=== PATIENT | female | born 1970 | race Caucasian/White ===

== ENCOUNTER 2019-05-16 20:36 | Emergency (ER) | payer BC ==
[2019-05-16] MEDS ORDERED: Sodium Chloride 0.9% 10 ML Syringe FLUSH PRN (20:47)
[2019-05-16] MEDS ORDERED: Aspirin 81 MG Tab.Chew PO ONE (20:50)
[2019-05-16] MEDS ORDERED: Amiodarone 150 MG/3 ML SDV IVPUSH ONE (20:56)
--- NOTE | 2019-05-16 21:05 | EDM.PDOC ---
ED HPI GENERAL MEDICAL PROBLEM - General Chief Complaint: Cardiovascular Problem Stated Complaint: BACK PAIN Time Seen by Provider: 05/16/19 20:45 Source of Information: Reports: Patient, Family, Old Records History Limitations: Reports: No Limitations - History of Present Illness INITIAL COMMENTS - FREE TEXT/NARRATIVE: 48 yo female who only takes an estrogen medication and who has been relatively healthy presents with about a 9 day hx of intermittent dizziness. Over the past day she has pain between her shoulder blades. Is unaware of any heart palpitations. Denies SOB. Walked about 2 miles today at work, had to walk a little slower than usual. No nausea. No hx of CAD. Is here with her . Onset: Gradual Onset Date: 05/07/19 Duration: Day(s):, Waxing/Waning Location: Reports: Head (light-headedness), Back (pain) Quality: Reports: Pressure (back) Severity: Mild Improves with: Reports: None Worsens with: Reports: None Context: Reports: Other (see HPI) Associated Symptoms: Reports: No Other Symptoms Treatments ADMIN DIR: Reports: Other (see below) (none) - Related Data Allergies Allergy/AdvReac Type Severity Reaction Status Date / Time penicillin Allergy Rash Verified 05/16/19 20:48 Sulfa (Sulfonamide Allergy Rash Verified 05/16/19 20:48 Antibiotics) Home Meds: Home Meds NK [No Known Home Meds] 06/02/15 [History] ED ROS GENERAL - Review of Systems Review Of Systems: See Below Constitutional: Reports: No Symptoms HEENT: Reports: No Symptoms, Vertigo Cardiovascular: Reports: Lightheadedness (intermittent) Endocrine: Reports: No Symptoms GI/Abdominal: Reports: No Symptoms : Reports: No Symptoms Musculoskeletal: Reports: No Symptoms Skin: Reports: No Symptoms Neurological: Reports: No Symptoms Psychiatric: Reports: No Symptoms ED EXAM, GENERAL - Physical Exam Exam: See Below Exam Limited By: No Limitations General Appearance: Alert, WD/WN, No Apparent Distress Eye Exam: Bilateral Eye: Normal Inspection Ears: Normal External Exam, Normal Canal, Hearing Grossly Normal, Normal TMs Ear Exam: Bilateral Ear: Auricle Normal, Canal Normal, TM normal Nose: Normal Inspection, No Blood Throat/Mouth: Normal Inspection, Normal Lips, Normal Oropharynx, Normal Voice, No Airway Compromise Head: Atraumatic, Normocephalic Neck: Normal Inspection Respiratory/Chest: No Respiratory Distress, Lungs Clear, Normal Breath Sounds, No Accessory Muscle Use Cardiovascular: Tachycardia (at times), Irregularly Irregular GI/Abdominal: Normal Bowel Sounds, Soft, Non-Tender, No Distention Back Exam: Normal Inspection. No: CVA Tenderness (R), CVA Tenderness (L) Extremities: Normal Inspection, Normal Range of Motion, Non-Tender, No Pedal Edema Neurological: Alert, Oriented, CN II-XII Intact, Normal Cognition, No Motor/ Sensory Deficits Psychiatric: Normal Affect, Normal Mood Skin Exam: Warm, Dry, Intact, Normal Color, No Rash EKG INTERPRETATION EKG Date: 05/16/19 Time: 20:45 Rhythm: Other (non-sustained V-tach) Rate (Beats/Min): 132 [place]: Normal P-Wave: Absent QRS: Wide ST-T: Depressed QT: Normal Comparison: NA - No Prior EKG Course - Vital Signs Text/Narrative:: [facility] Cardiology consult requested by phone @ 4017h. Rate slowed with amiodarone, drip initiated. Last Recorded V/S: Last Vital Signs Temp 36.3 C 05/16/19 21:01 Pulse 93 05/16/19 21:24 Resp 15 05/16/19 21:24 BP 150/120 H 05/16/19 21:24 Pulse Ox 100 05/16/19 21:24 - Orders/Labs/Meds Orders: Active Orders 24 hr Category Date Time Status Cardiac Monitoring [RC] .As Directed Care 05/16/19 20:47 Active EKG Documentation Completion [RC] ASDIRECTED Care 05/16/19 20:47 Active Oxygen Therapy Adult [Oxygen Therapy, ED] [RC] Care 05/16/19 20:51 Active ASDIRECTED TSH ULTRASENSITIVE [CHEM] Stat Lab 05/16/19 21:45 Ordered Amiodarone [Cordarone] 450 mg Med 05/16/19 21:45 Active Dextrose 5% in Water 241 ml IV ASDIRECTED Sodium Chloride 0.9% [Saline Flush] Med 05/16/19 20:47 Active 10 ml FLUSH ASDIRECTED PRN Saline Lock Insert [OM.PC] Routine Oth 05/16/19 20:47 Ordered EKG 12 Lead [EK] Routine Ther 05/16/19 20:47 Ordered Medication Orders Amiodarone HCl 450 mg/ (Dextrose/Water) 250 mls @ 33.33 mls/hr IV ASDIRECTED MATILDE; Protocol Sodium Chloride (Saline Flush) 10 ml FLUSH ASDIRECTED PRN PRN Reason: Keep Vein Open Last Admin: 05/16/19 21:11 Dose: 10 ml Labs: Laboratory Tests 05/16/19 05/16/19 05/16/19 Range/Units 20:53 20:53 20:58 WBC 9.1 (4.5-11.0) K/uL RBC 4.92 (3.30-5.50) M/uL Hgb 14.4 (12.0-15.0) g/dL Hct 43.3 (36.0-48.0) % MCV 88 (80-98) fL MCH 29 (27-31) pg MCHC 33 (32-36) % Plt Count 249 (150-400) K/uL Sodium 141 (140-148) mmol/L Potassium 4.2 (3.6-5.2) mmol/L Chloride 103 (100-108) mmol/L Carbon Dioxide 30 (21-32) mmol/L Anion Gap 8.4 (5.0-14.0) mmol/L BUN 17 (7-18) mg/dL Creatinine 1.0 (0.6-1.0) mg/dL Est Cr Clr Drug Dosing 60.56 mL/min Estimated GFR (MDRD) 59 L (>60) Glucose 114 H (74-106) mg/dL Calcium 10.4 H (8.5-10.1) mg/dL Magnesium 2.0 (1.8-2.4) mg/dL Troponin I < 0.017 (0.000-0.056) ng/mL Meds: Medications Generic Name Dose Route Start Last Admin Trade Name Freq PRN Reason Stop Dose Admin Amiodarone HCl 450 mg/ 250 mls @ 33.33 mls/hr 05/16/19 21:45 Dextrose/Water IV ASDIRECTED MATILDE Protocol 1 MG/MIN Sodium Chloride 10 ml 05/16/19 20:47 05/16/19 21:11 Saline Flush FLUSH 10 ml ASDIRECTED PRN Administration Keep Vein Open Discontinued Medications Generic Name Dose Route Start Last Admin Trade Name Freq PRN Reason Stop Dose Admin Amiodarone HCl 150 mg 05/16/19 20:56 05/16/19 21:49 Cordarone IVPUSH 05/16/19 20:57 150 mg ONETIME ONE Administration Aspirin 324 mg 05/16/19 20:50 05/16/19 20:53 Aspirin PO 05/16/19 20:51 324 mg ONETIME ONE Administration Dextrose/Water Confirm 05/16/19 21:09 05/16/19 21:50 Dextrose 5% In Water Administered 05/16/19 21:10 100 mls/hr Dose Administration 100 mls @ as directed .ROUTE .STK-MED ONE Departure - Departure Time of Disposition: 22:10 Disposition: DC/Tfer to Acute Hospital 02 Reason for Transfer *Q: Other Condition: Fair Clinical Impression: Atrial fibrillation with RVR Referrals: PCP,None [Primary Care Provider] - Forms: ED Department Discharge - My Orders Last 24 Hours: My Active Orders 05/16/19 20:47 Cardiac Monitoring [RC] .As Directed EKG Documentation Completion [RC] ASDIRECTED Sodium Chloride 0.9% [Saline Flush] 10 ml FLUSH ASDIRECTED PRN Saline Lock Insert [OM.PC] Routine EKG 12 Lead [EK] Routine 05/16/19 20:51 Oxygen Therapy Adult [Oxygen Therapy, ED] [RC] ASDIRECTED 05/16/19 21:45 TSH ULTRASENSITIVE [CHEM] Stat Amiodarone [Cordarone] 450 mg Dextrose 5% in Water 241 ml IV ASDIRECTED - Assessment/Plan Last 24 Hours: My Active Orders 05/16/19 20:47 Cardiac Monitoring [RC] .As Directed EKG Documentation Completion [RC] ASDIRECTED Sodium Chloride 0.9% [Saline Flush] 10 ml FLUSH ASDIRECTED PRN Saline Lock Insert [OM.PC] Routine EKG 12 Lead [EK] Routine 05/16/19 20:51 Oxygen Therapy Adult [Oxygen Therapy, ED] [RC] ASDIRECTED 05/16/19 21:45 TSH ULTRASENSITIVE [CHEM] Stat Amiodarone [Cordarone] 450 mg Dextrose 5% in Water 241 ml IV ASDIRECTED
[2019-05-16] MEDS ORDERED: Dextrose 5% in Water 100 ML ONE (21:09)
[2019-05-16 22:45] VITALS: BP 144/98; PULSE 112
== END 2019-05-16 23:00 ==
LOC: JP.ED 20:36
DX: I48.2 Chronic atrial fibrillation (principal); Z88.0 Allergy status to penicillin; Z88.2 Allergy status to sulfonamides
CPT/HCPCS: 36415; 80048; 83735; 84443; 84484; 85027; 93005; 96365; 96376; 99284; A9270; J0282; J7060

== ENCOUNTER 2019-05-20 10:07 | Emergency (ER) | payer BC ==
[2019-05-20 10:28] VITALS: BP 139/82; PULSE 52
--- NOTE | 2019-05-20 11:16 | EDM.PDOC ---
ED HPI GENERAL MEDICAL PROBLEM - General Chief Complaint: Cardiovascular Problem Stated Complaint: HEART ISSUES Time Seen by Provider: 05/20/19 10:40 Source of Information: Reports: Patient History Limitations: Reports: No Limitations - History of Present Illness INITIAL COMMENTS - FREE TEXT/NARRATIVE: 48-year-old female presents with left upper shoulder discomfort and nausea, she was worked up and sent to [place] for cardiology evaluation this week after coming into the emergency room 5 days ago with back and chest discomfort. An angiogram, echocardiogram, transesophageal echo were all performed in [place] and she was found to have mitral valve prolapse causing frequent ectopic beats. She does have a [facility] consultation coming up to consider surgery. She also has a follow-up appointment with her primary provider next Thursday, and a cardiology follow-up on Thursday. She came in today because she is having some persistent nausea and the back discomfort is also present. When she arrived to the emergency room she started feeling better. There appears to be some anxiety about her symptoms and upcoming evaluation and possible surgery. She denies shortness of breath. Onset: Unknown/Unsure Associated Symptoms: Reports: Malaise, Nausea/Vomiting. Denies: Confusion, Chest Pain, Cough, Diaphoresis - Related Data Allergies Allergy/AdvReac Type Severity Reaction Status Date / Time penicillin Allergy Rash Verified 05/20/19 10:24 Sulfa (Sulfonamide Allergy Rash Verified 05/20/19 10:24 Antibiotics) Home Meds: Home Meds Aspirin 1 tab PO DAILY 05/20/19 [History] Magnesium Chloride [Mag-64] 1 tab PO DAILY 05/20/19 [History] Metoprolol Tartrate 1 tab PO DAILY 05/20/19 [History] Past Medical History HEENT History: Reports: Impaired Vision Cardiovascular History: Reports: Heart Murmur, Other (See Below) Other Cardiovascular History: mitral valve prolaps dx on thursday 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 Denies: Fever, Chills HEENT: Reports: No Symptoms Respiratory: Denies: Shortness of Breath Cardiovascular: Denies: Palpitations GI/Abdominal: Reports: Nausea Musculoskeletal: Reports: Back Pain (Posterior upper left shoulder) Psychiatric: Reports: Anxiety ED EXAM, GENERAL - Physical Exam Exam: See Below Exam Limited By: No Limitations General Appearance: Alert, Anxious Eye Exam: Bilateral Eye: Normal Inspection Head: Atraumatic Neck: Normal Inspection Respiratory/Chest: No Respiratory Distress, Lungs Clear Cardiovascular: Regular Rate, Rhythm, Extra Beats (Frequent ectopic beats) GI/Abdominal: Non-Tender Back Exam: Other (She does have some reproducible tenderness to palpation over the left rhomboid area) EKG INTERPRETATION EKG Date: 05/20/19 Time: 10:35 Rhythm: NSR ST-T: Normal EKG Interpretation Comments: Normal sinus rhythm with frequent PACs Course - Vital Signs Last Recorded V/S: Last Vital Signs Temp 97.5 F 05/20/19 10:33 Pulse 52 L 05/20/19 10:33 Resp 15 05/20/19 10:33 BP 139/82 05/20/19 10:33 Pulse Ox 98 05/20/19 10:33 - Orders/Labs/Meds Orders: Active Orders 24 hr Category Date Time Status EKG Documentation Completion [RC] ASDIRECTED Care 05/20/19 11:03 Active EKG 12 Lead [EK] Routine Ther 05/20/19 11:03 Ordered - Re-Assessments/Exams Free Text/Narrative Re-Assessment/Exam: 05/20/19 11:15 Workup is not necessary with this patien she has had a workup earlier this week and has follow-up set up. She was given 5 doses of sublingual Zofran to use as needed for persistent nausea. She is to continue her metoprolol. She can return anytime if she feels she is worsening or needs further evaluation prior to her appointment next week. Departure - Departure Time of Disposition: 11:17 Disposition: Home, Self-Care 01 Condition: Good Clinical Impression: Nausea, Mitral valve prolapse Instructions: Mitral Valve Prolapse Referrals: PCP,None [Primary Care Provider] - Forms: ED Department Discharge Care Plan Goals: Continue your metoprolol, increase activity as tolerated and use sublingual Zofran as directed for persistent nausea. Recheck next week as scheduled or return sooner if you develop concerns. - My Orders Last 24 Hours: My Active Orders 05/20/19 11:03 EKG Documentation Completion [RC] ASDIRECTED EKG 12 Lead [EK] Routine - Assessment/Plan Last 24 Hours: My Active Orders 05/20/19 11:03 EKG Documentation Completion [RC] ASDIRECTED EKG 12 Lead [EK] Routine
== END 2019-05-20 11:18 | disposition home or self-care (01) ==
LOC: JP.ED 10:07
DX: I34.1 Nonrheumatic mitral (valve) prolapse (principal); R11.2 Nausea with vomiting, unspecified; Z88.0 Allergy status to penicillin; Z88.2 Allergy status to sulfonamides; Z79.82 Long term (current) use of aspirin; Z79.899 Other long term (current) drug therapy
CPT/HCPCS: 93005; 99283-25

== ENCOUNTER 2019-05-29 13:19 | Emergency (ER) | payer BC ==
--- NOTE | 2019-05-29 13:39 | EDM.PDOC ---
ED HPI GENERAL MEDICAL PROBLEM - General Chief Complaint: Cardiovascular Problem Stated Complaint: WEAK, LIGHT HEAD Time Seen by Provider: 05/29/19 13:25 Source of Information: Reports: Patient History Limitations: Reports: No Limitations - History of Present Illness INITIAL COMMENTS - FREE TEXT/NARRATIVE: Bee is a 48 year old female, presents to the ED today with c/o generalized fatigue, lightheadedness and feeling tired. Patient was seen here at the end of April and diagnosed with atrial fibrillation RVR since that time she has been on metoprolol to control her rate. She initially was on 25 mg BID, however, heart rate was too low so she was switched to 12.5 mg BID for the last few days. Patient is not feeling much improvement. She denies any current chest pain but does have chest pain intermittently. Patient denies any sob, fever/chills. Patient is supposed to be going to [place] to be evaluated by their cardiac care team with Dr. Bentley for leaky mitral valve. 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 ED EXAM, GENERAL - Physical Exam Exam: See Below Exam Limited By: No Limitations General Appearance: Alert, WD/WN, No Apparent Distress, Other (Alert but appears tired) Eye Exam: Bilateral Eye: EOMI Ears: Normal External Exam Head: Atraumatic Neck: Normal Inspection, Supple, Non-Tender Respiratory/Chest: No Respiratory Distress, Lungs Clear, Normal Breath Sounds Cardiovascular: Normal Peripheral Pulses, No Edema, Bradycardia. No: Extra Beats Extremities: Normal Inspection Neurological: Alert, Oriented, CN II-XII Intact Psychiatric: Other (flat affect) Skin Exam: Warm, Dry, Intact Lymphatic: No Adenopathy EKG INTERPRETATION EKG Date: 05/29/19 Time: 13:22 Rhythm: Other (sinus bradycardia) Rate (Beats/Min): 50 [place]: Normal P-Wave: Present QRS: Normal ST-T: Normal QT: Normal Course - Vital Signs Last Recorded V/S: Last Vital Signs Temp 36.1 C 05/29/19 13:38 Pulse 54 L 05/29/19 14:55 Resp 16 05/29/19 14:55 BP 143/84 H 05/29/19 14:55 Pulse Ox 99 05/29/19 13:38 Bee is a 48 year old female, recently diagnosed with atrial fibrillation with RVR, now on Metoprolol, presents to the ED with feeling generally tired/ fatigued. Patient is hemodynamically stable and afebrile here. She is bradycardic with no ectopy or acute ischemia on EKG. Blood work obtained including Troponin, CBC, BMP, TSH and magnesium, all unremarkable. I discussed patient with Dr. Valles, cardiology from [place], recommend to stop the Metoprolol for now. If she returns into an atrial fibrillation rhythm going forward will need a CCB instead. Patient updated on plan of care and is agreeable. Reasons to return discussed, patient and agreeable and patient discharged in stable condition. - Orders/Labs/Meds Orders: Active Orders 24 hr Category Date Time Status EKG Documentation Completion [RC] ASDIRECTED Care 05/29/19 13:24 Active EKG 12 Lead [EK] Stat Ther 05/29/19 13:23 Ordered Labs: Laboratory Tests 05/29/19 05/29/19 Range/Units 13:50 13:50 WBC 6.6 (4.5-11.0) K/uL RBC 4.62 (3.30-5.50) M/uL Hgb 13.4 (12.0-15.0) g/dL Hct 40.8 (36.0-48.0) % MCV 88 (80-98) fL MCH 29 (27-31) pg MCHC 33 (32-36) % Plt Count 275 (150-400) K/uL Neut % (Auto) 57 (36-66) % Lymph % (Auto) 30 (24-44) % [place] % (Auto) 7 H (2-6) % Eos % (Auto) 6 H (2-4) % Baso % (Auto) 0 (0-1) % Sodium 140 (140-148) mmol/L Potassium 4.5 (3.6-5.2) mmol/L Chloride 104 (100-108) mmol/L Carbon Dioxide 28 (21-32) mmol/L Anion Gap 8.2 (5.0-14.0) mmol/L BUN 27 H D (7-18) mg/dL Creatinine 1.0 (0.6-1.0) mg/dL Est Cr Clr Drug Dosing 60.56 mL/min Estimated GFR (MDRD) 59 L (>60) Glucose 87 (74-106) mg/dL Calcium 9.9 (8.5-10.1) mg/dL Magnesium 1.8 (1.8-2.4) mg/dL Troponin I < 0.017 (0.000-0.056) ng/mL TSH, Ultra Sensitive 2.603 (0.358-3.740) uIU/mL Departure - Departure Time of Disposition: 15:30 Disposition: Home, Self-Care 01 Condition: Fair Clinical Impression: Bradycardia, Generalized weakness Fatigue Qualifiers: Fatigue type: other Qualified Code(s): R53.83 - Other fatigue Instructions: Fatigue, Bradycardia, Adult Referrals: PCP,None [Primary Care Provider] - Forms: ED Department Discharge Additional Instructions: Stop the Metoprolol Continue with baby aspirin daily Stay well hydrated. Return with any worsening symptoms or new symptoms. Good luck with everything, I hope this is all resolved for you shortly. If you do end up in atrial fibrillation again, you will need a calcium channel zee instead. - My Orders Last 24 Hours: My Active Orders 05/29/19 13:23 EKG 12 Lead [EK] Stat 05/29/19 13:24 EKG Documentation Completion [RC] ASDIRECTED - Assessment/Plan Last 24 Hours: My Active Orders 05/29/19 13:23 EKG 12 Lead [EK] Stat 05/29/19 13:24 EKG Documentation Completion [RC] ASDIRECTED
[2019-05-29 14:56] VITALS: BP 143/84; PULSE 54
== END 2019-05-29 15:35 | disposition home or self-care (01) ==
LOC: JP.ED 13:19
DX: R00.1 Bradycardia, unspecified (principal); R53.1 Weakness; R53.83 Other fatigue; Z98.890 Other specified postprocedural states; Z79.82 Long term (current) use of aspirin; Z88.0 Allergy status to penicillin; Z88.2 Allergy status to sulfonamides
CPT/HCPCS: 36415; 80048; 83735; 84443; 84484; 85025; 93005; 99283-25

== ENCOUNTER 2019-06-13 00:10 | Emergency (ER) | payer BC ==
--- NOTE | 2019-06-13 01:16 | EDM.PDOC ---
ED HPI GENERAL MEDICAL PROBLEM - General Chief Complaint: Cardiovascular Problem Stated Complaint: HEART PROBLEMS Time Seen by Provider: 06/13/19 00:50 Source of Information: Reports: Patient, Old Records, RN History Limitations: Reports: No Limitations - History of Present Illness INITIAL COMMENTS - FREE TEXT/NARRATIVE: 48 yo female was seen here a couple weeks ago for a wide complex tachycardia and was referred to [facility] where they dx afib with aberrancy. She is wearing a heart monitor and got a call from the monitoring company telling her to come to the ER [facility] after a short run of tachycardia was noted. Patient is here at their recommendation, but is now feeling fine. She is on metoprolol succinate 25 mg bid currently for rate control and ASA as she is low risk for stroke. She was also found to have valvular dz in [facility] and she is waiting a few more weeks to be seen at [place] for valve repair. She is getting tired of waiting and would like an appt at [facility] with a Dr. Carty who does the procedure she needs. Onset: Sudden Onset Date: 06/12/19 Duration: Other (seconds) Location: Reports: Chest Quality: Reports: Other (no pain) Severity: Moderate Improves with: Reports: Other (resolved on its own) Worsens with: Reports: Other (unknown) Context: Reports: Other (see HPI) Associated Symptoms: Reports: Other (Has some fatigue since this process began a few weeks ago. 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 (see below) (none) - Related Data Allergies Allergy/AdvReac Type Severity Reaction Status Date / Time penicillin Allergy Rash Verified 05/29/19 13:30 Sulfa (Sulfonamide Allergy Rash Verified 05/29/19 13:30 Antibiotics) Home Meds: Home Meds Aspirin 1 tab PO DAILY 05/20/19 [History] Ondansetron [Ondansetron ODT] 1 tab PO TID PRN 05/29/19 [History] Metoprolol Succinate 25 mg PO DAILY 06/13/19 [History] Past Medical History HEENT History: Reports: Impaired Vision Cardiovascular History: Reports: Afib, Arrhythmia, Heart Murmur, Other (See Below) Other Cardiovascular History: mitral valve prolaps dx on thursday. 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: - Past Surgical History HEENT Surgical History: Reports: LASIK, Oral Surgery Female Surgical History: Reports: Other (See Below) Other Female Surgeries/Procedures: fibroids removed from uterus Musculoskeletal Surgical History: Reports: Other (See Below) Other Musculoskeletal Surgeries/Procedures:: bunionectomy Social & Family History - Family History Family Medical History: Noncontributory - Tobacco Use Smoking Status *Q: Never Smoker - Caffeine Use Caffeine Use: Reports: None - Recreational Drug Use Recreational Drug Use: No ED ROS GENERAL - Review of Systems Review Of Systems: See Below Constitutional: Reports: Fatigue HEENT: Reports: No Symptoms Respiratory: Reports: No Symptoms Cardiovascular: Reports: Palpitations (intermittently) GI/Abdominal: Reports: No Symptoms : Reports: No Symptoms Skin: Reports: No Symptoms Neurological: Reports: No Symptoms ED EXAM, GENERAL - Physical Exam Exam: See Below Exam Limited By: No Limitations General Appearance: Alert, WD/WN, No Apparent Distress Eye Exam: Bilateral Eye: Normal Inspection Ears: Hearing Grossly Normal Ear Exam: Right Ear: Erythema Nose: Normal Inspection, No Blood Throat/Mouth: Normal Inspection, Normal Lips, Normal Voice, No Airway Compromise Head: Atraumatic, Normocephalic Neck: Normal Inspection Respiratory/Chest: No Respiratory Distress, Lungs Clear, Normal Breath Sounds, No Accessory Muscle Use Cardiovascular: No Edema, Irregularly Irregular Extremities: Normal Inspection Neurological: Alert, Oriented, CN II-XII Intact, Normal Cognition, No Motor/ Sensory Deficits Psychiatric: Normal Affect, Normal Mood Skin Exam: Warm, Dry, Intact, Normal Color, No Rash Course - Orders/Labs/Meds Orders: Active Orders 24 hr Category Date Time Status Cardiac Monitoring [RC] .As Directed Care 06/13/19 00:47 Active Departure - Departure Time of Disposition: 01:18 Disposition: Home, Self-Care 01 Condition: Fair Clinical Impression: Atrial fibrillation with RVR Instructions: Atrial Fibrillation, [id number] Referrals: Laurel Ham MD [Primary Care Provider] - Additional Instructions: Hopefully someone from [facility] will contact you later today with an appt for [facility], Dr. Carty. Return as needed. Continue your current meds. - My Orders Last 24 Hours: My Active Orders 06/13/19 00:47 Cardiac Monitoring [RC] .As Directed - Assessment/Plan Last 24 Hours: My Active Orders 06/13/19 00:47 Cardiac Monitoring [RC] .As Directed
[2019-06-13 01:52] VITALS: BP 109/76
== END 2019-06-13 01:27 | disposition home or self-care (01) ==
LOC: JP.ED 00:10
DX: I48.91 Unspecified atrial fibrillation (principal); Z88.0 Allergy status to penicillin; Z88.2 Allergy status to sulfonamides; Z79.82 Long term (current) use of aspirin; Z79.899 Other long term (current) drug therapy
CPT/HCPCS: 99283-25

== ENCOUNTER 2019-06-13 22:24 | Emergency (ER) | payer BC ==
[2019-06-13] MEDS ORDERED: Magnesium Sulfate (4.06 MEQ/ML) 1 GM/2 ML SDV IV ONE (23:09)
--- NOTE | 2019-06-13 23:18 | EDM.PDOC ---
ED HPI GENERAL MEDICAL PROBLEM - General Chief Complaint: Cardiovascular Problem Stated Complaint: MEDICAL Time Seen by Provider: 06/13/19 23:12 Source of Information: Reports: Patient History Limitations: Reports: No Limitations - History of Present Illness INITIAL COMMENTS - FREE TEXT/NARRATIVE: pt arrived with a history of a run of vtach per the loop recorder. [facility] advised the pt to come to the er. She has been in the Er 3 times this week. Each time she has been found to be in fib-flutter. She has not had chest pain. She has a known history of mitral valve prolapse. She is not on coumadin or other thinners. Onset: Today Duration: Hour(s): Location: Reports: Chest Associated Symptoms: Reports: No Other Symptoms, Other (pt has had some discomfort between her shoulder blades. ) denies pain Pain Score (Numeric/FACES): 0 - Related Data Allergies Allergy/AdvReac Type Severity Reaction Status Date / Time penicillin Allergy Rash Verified 06/13/19 22:32 Sulfa (Sulfonamide Allergy Rash Verified 06/13/19 22:32 Antibiotics) Home Meds: Home Meds Aspirin 325 mg PO DAILY 05/20/19 [History] Ondansetron [Ondansetron ODT] 1 tab PO TID PRN 05/29/19 [History] Metoprolol Succinate 25 mg PO BID 06/13/19 [History] Past Medical History HEENT History: Reports: Impaired Vision Cardiovascular History: Reports: Afib, Arrhythmia, Heart Murmur, Other (See Below) Other Cardiovascular History: mitral valve prolaps dx on thursday. atrial flutter. 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 [employer] History: Reports: - Past Surgical History HEENT Surgical History: Reports: LASIK, Oral Surgery Female Surgical History: Reports: Other (See Below) Other Female Surgeries/Procedures: fibroids removed from uterus Musculoskeletal Surgical History: Reports: Other (See Below) Other Musculoskeletal Surgeries/Procedures:: bunionectomy Social & Family History - Family History Family Medical History: Noncontributory - Tobacco Use Smoking Status *Q: Never Smoker - Caffeine Use Caffeine Use: Reports: None - Recreational Drug Use Recreational Drug Use: No ED ROS GENERAL - Review of Systems Review Of Systems: See Below Constitutional: Reports: Other (pt has had multiple episodes of dizziness and she is wondering if she is having episodes of vtach. ) HEENT: Reports: No Symptoms Respiratory: Reports: No Symptoms Cardiovascular: Reports: Lightheadedness, Palpitations, Other (pt was told that she was in VTach. ) Endocrine: Reports: No Symptoms GI/Abdominal: Reports: No Symptoms : Reports: No Symptoms Musculoskeletal: Reports: No Symptoms Skin: Reports: No Symptoms Neurological: Reports: Dizziness Psychiatric: Reports: Anxiety ED EXAM, GENERAL - Physical Exam Exam: See Below Free Text/Narrative:: pt arrived with a history of a run of V tach which showed up on the loop recorder. Exam Limited By: No Limitations General Appearance: Alert, Anxious, Mild Distress Ears: Normal TMs Nose: Normal Inspection Throat/Mouth: Normal Inspection Head: Atraumatic Neck: Normal Inspection Respiratory/Chest: No Respiratory Distress Cardiovascular: Irregularly Irregular, Other (pt is in a fib flutter rhythm and is not on blood thinners. ) GI/Abdominal: Soft, Non-Tender (Female) Exam: Deferred Rectal (Female) Exam: Deferred Back Exam: Normal Inspection Extremities: Normal Inspection Neurological: Alert, Oriented, Normal Cognition Psychiatric: Anxious Course - Vital Signs Last Recorded V/S: Last Vital Signs Temp 36.9 C 06/13/19 22:34 Pulse 91 06/13/19 22:34 Resp 21 H 06/13/19 22:34 BP 113/79 06/13/19 23:45 Pulse Ox 99 06/13/19 22:34 - Orders/Labs/Meds Labs: Laboratory Tests 06/13/19 06/13/19 06/13/19 Range/Units 22:42 22:42 22:42 WBC 9.1 (4.5-11.0) K/uL RBC 4.52 (3.30-5.50) M/uL Hgb 13.2 (12.0-15.0) g/dL Hct 40.0 (36.0-48.0) % MCV 89 (80-98) fL MCH 29 (27-31) pg MCHC 33 (32-36) % Plt Count 253 (150-400) K/uL Neut % (Auto) 54 (36-66) % Lymph % (Auto) 30 (24-44) % [place] % (Auto) 10 H (2-6) % Eos % (Auto) 6 H (2-4) % Baso % (Auto) 0 (0-1) % Sodium 139 L (140-148) mmol/L Potassium 3.9 (3.6-5.2) mmol/L Chloride 104 (100-108) mmol/L Carbon Dioxide 28 (21-32) mmol/L Anion Gap 10.9 (5.0-14.0) mmol/L BUN 29 H (7-18) mg/dL Creatinine 1.1 H (0.6-1.0) mg/dL Est Cr Clr Drug Dosing 55.06 mL/min Estimated GFR (MDRD) 53 L (>60) Glucose 104 (74-106) mg/dL Calcium 9.5 (8.5-10.1) mg/dL Magnesium 1.7 L (1.8-2.4) mg/dL Total Bilirubin 0.2 (0.2-1.0) mg/dL AST 17 (15-37) U/L ALT 29 (12-78) U/L Alkaline Phosphatase 59 (46-116) U/L Troponin I (0.000-0.056) ng/mL Total Protein 6.6 (6.4-8.2) g/dL Albumin 3.7 (3.4-5.0) g/dL Globulin 2.9 (2.3-3.5) g/dL Albumin/Globulin Ratio 1.3 (1.2-2.2) 06/13/19 Range/Units 23:15 WBC (4.5-11.0) K/uL RBC (3.30-5.50) M/uL Hgb (12.0-15.0) g/dL Hct (36.0-48.0) % MCV (80-98) fL MCH (27-31) pg MCHC (32-36) % Plt Count (150-400) K/uL Neut % (Auto) (36-66) % Lymph % (Auto) (24-44) % [place] % (Auto) (2-6) % Eos % (Auto) (2-4) % Baso % (Auto) (0-1) % Sodium (140-148) mmol/L Potassium (3.6-5.2) mmol/L Chloride (100-108) mmol/L Carbon Dioxide (21-32) mmol/L Anion Gap (5.0-14.0) mmol/L BUN (7-18) mg/dL Creatinine (0.6-1.0) mg/dL Est Cr Clr Drug Dosing mL/min Estimated GFR (MDRD) (>60) Glucose (74-106) mg/dL Calcium (8.5-10.1) mg/dL Magnesium (1.8-2.4) mg/dL Total Bilirubin (0.2-1.0) mg/dL AST (15-37) U/L ALT (12-78) U/L Alkaline Phosphatase (46-116) U/L Troponin I < 0.017 (0.000-0.056) ng/mL Total Protein (6.4-8.2) g/dL Albumin (3.4-5.0) g/dL Globulin (2.3-3.5) g/dL Albumin/Globulin Ratio (1.2-2.2) Meds: Medications Discontinued Medications Generic Name Dose Route Start Last Admin Trade Name Freq PRN Reason Stop Dose Admin Magnesium Sulfate 2 gm/ Premix 50 mls @ 12.5 mls/hr 06/13/19 23:32 06/14/19 00:15 IV 06/14/19 03:31 12.5 mls/hr ONETIME ONE Administration Magnesium Sulfate 1 gm 06/13/19 23:09 06/13/19 23:43 Magnesium Sulfate 50% IV 06/13/19 23:10 Not Given ONETIME ONE Ondansetron HCl 4 mg 06/14/19 00:00 06/14/19 00:11 Zofran IVPUSH 06/14/19 00:01 4 mg ONETIME ONE Administration - Re-Assessments/Exams Free Text/Narrative Re-Assessment/Exam: 06/13/19 23:19 pt was found to have fib-flutter rhythm. She has a low mag so she will be given a gram of mag. Departure - Departure Time of Disposition: 23:50 Disposition: DC/Tfer to Acute Hospital 02 Reason for Transfer *Q: Primary PCI Indicated Condition: Fair Clinical Impression: V-tach, Atrial fibrillation and flutter, Mitral valve prolapse Referrals: Laurel Ham MD [Primary Care Provider] - Forms: ED Department Discharge Care Plan Goals: transfer to [facility].
[2019-06-13] MEDS ORDERED: Magnesium Sulfate/Water 2 GM in Premix Bag 1 BAG IV ONE (23:32)
[2019-06-13 23:56] VITALS: BP 113/79
[2019-06-14] MEDS ORDERED: Ondansetron 4 MG/2 ML SDV IVPUSH ONE
== END 2019-06-14 00:37 ==
LOC: JP.ED 22:24
DX: I48.91 Unspecified atrial fibrillation (principal); I48.92 Unspecified atrial flutter; I47.2 Ventricular tachycardia; I34.1 Nonrheumatic mitral (valve) prolapse; Z88.0 Allergy status to penicillin; Z88.2 Allergy status to sulfonamides; Z79.82 Long term (current) use of aspirin; Z79.899 Other long term (current) drug therapy
CPT/HCPCS: 36415; 80053; 83735; 84484; 85025; 93005; 96374; 96375; 99283; 99285; J2405; J3475

== ENCOUNTER 2020-04-16 00:34 | Emergency (ER) | payer BC ==
--- NOTE | 2020-04-16 01:14 | EDM.PDOC ---
ED HPI GENERAL MEDICAL PROBLEM - General Chief Complaint: Chest Pain Stated Complaint: CHESST PAINS Time Seen by Provider: 04/16/20 00:55 Source of Information: Reports: Patient History Limitations: Reports: No Limitations - History of Present Illness INITIAL COMMENTS - FREE TEXT/NARRATIVE: 49-year-old female with a history of mitral valve prolapse resulting in mitral valve repair last May, was on amiodarone for suppression of atrial fib flutter until December of this year. Her only medication now is Coumadin. Over the past several weeks she is noted more palpitations which are PVCs, and tonight she felt some mild chest pressure. No shortness of breath, pain, radiation of symptoms, diaphoresis, nausea or vomiting. She is scheduled to be placed on a monitor in the near future to monitor her PVCs. An angiogram was normal prior to her surgery in May. She has no fever, shortness of breath or cough. Onset: Sudden (Developed the pressure fairly suddenly about 3 hours ago after having some palpitations) Duration: Hour(s): (Symptoms just over 3 hours, much improved now, almost gone) Associated Symptoms: Reports: Other (Very anxious) Chest Pain Score (Numeric/FACES): 1 - Related Data Allergies Allergy/AdvReac Type Severity Reaction Status Date / Time penicillin Allergy Rash Verified 04/16/20 00:36 Sulfa (Sulfonamide Allergy Rash Verified 04/16/20 00:36 Antibiotics) Home Meds: Home Meds Warfarin Sodium [Coumadin] 1 tab PO DAILY 04/16/20 [History] Past Medical History HEENT History: Reports: Impaired Vision Cardiovascular History: Reports: Afib, Arrhythmia, Heart Murmur, Other (See Below) Other Cardiovascular History: mitral valve prolaps dx on thursday. atrial flutter. Loop monitor on pt until Jun 21 [employer] OFF[employer] History: Reports: - Infectious Disease History Infectious Disease History: Reports: Chicken Pox - Past Surgical History HEENT Surgical History: Reports: LASIK, Oral Surgery Cardiovascular Surgical History: Reports: Other (See Below) Other Cardiovascular Surgeries/Procedures: mechanical valve may 2019, ablasion oct 2019 GI Surgical History: Reports: Colonoscopy Female Surgical History: Reports: Other (See Below) Other Female Surgeries/Procedures: fibroids removed from uterus Musculoskeletal Surgical History: Reports: Other (See Below) Other Musculoskeletal Surgeries/Procedures:: bunionectomy Social & Family History - Family History Family Medical History: Noncontributory - Tobacco Use Smoking Status *Q: Never Smoker - Caffeine Use Caffeine Use: Reports: None - Recreational Drug Use Recreational Drug Use: No ED ROS GENERAL - Review of Systems Review Of Systems: See Below Constitutional: Denies: Fever, Chills Respiratory: Denies: Shortness of Breath Cardiovascular: Denies: Chest Pain (No chest pain, chest pressure sensation) GI/Abdominal: Denies: Abdominal Pain, Nausea, Vomiting : Reports: No Symptoms Skin: Reports: No Symptoms. Denies: Diaphoresis Neurological: Denies: Headache Psychiatric: Reports: Anxiety ED EXAM, GENERAL - Physical Exam Exam: See Below Exam Limited By: No Limitations General Appearance: Alert, No Apparent Distress, Anxious Head: Atraumatic Respiratory/Chest: No Respiratory Distress, Lungs Clear Cardiovascular: Regular Rate, Rhythm, Extra Beats, Other (No murmur but a loud mitral click is heard from the artificial valve) GI/Abdominal: Soft, Non-Tender Extremities: Normal Inspection. No: Pedal Edema Neurological: Alert, Oriented Psychiatric: Anxious Skin Exam: Warm, Dry EKG INTERPRETATION Rhythm: NSR EKG Interpretation Comments: EKG is normal other than one isolated PVC Course - Vital Signs Last Recorded V/S: Last Vital Signs Temp 95.5 F L 04/16/20 00:39 Pulse 69 04/16/20 01:38 Resp 15 04/16/20 01:38 BP 125/81 04/16/20 01:38 Pulse Ox 98 04/16/20 01:38 - Orders/Labs/Meds Orders: Active Orders 24 hr Category Date Time Status EKG Documentation Completion [RC] ASDIRECTED Care 04/16/20 01:08 Active EKG 12 Lead [EK] Routine Ther 04/16/20 01:08 Ordered Labs: Laboratory Tests 04/16/20 Range/Units 01:08 Troponin I < 0.017 (0.000-0.056) ng/mL - Re-Assessments/Exams Free Text/Narrative Re-Assessment/Exam: 04/16/20 01:13 Had a long discussion with the patient and her about the likelihood that this is benign especially in light of a normal angiogram just a few months ago. PVCs are likely making her anxious, she was hypertensive when she arrived and is much better now. A troponin will be drawn for reassurance and if elevated treatment will be initiated along with transfer. 04/16/20 01:49 Troponin 0. 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 Use Ativan as directed to calm down or help sleep. Sepsis Event Note (ED) - Evaluation Sepsis Screening Result: No Definite Risk - Focused Exam Vital Signs: Vital Signs Temp Pulse Resp BP Pulse Ox 04/16/20 01:38 69 15 125/81 98 04/16/20 01:00 77 12 117/89 96 04/16/20 00:39 95.5 F L 81 16 168/143 H 96 - My Orders Last 24 Hours: My Active Orders 04/16/20 01:08 EKG Documentation Completion [RC] ASDIRECTED EKG 12 Lead [EK] Routine - Assessment/Plan Last 24 Hours: My Active Orders 04/16/20 01:08 EKG Documentation Completion [RC] ASDIRECTED EKG 12 Lead [EK] Routine
[2020-04-16 01:38] VITALS: BP 125/81; PULSE 69
== END 2020-04-16 01:55 | disposition home or self-care (01) ==
LOC: JP.ED 00:34
DX: I49.3 Ventricular premature depolarization (principal); R07.89 Other chest pain; I48.91 Unspecified atrial fibrillation; I48.92 Unspecified atrial flutter; Z88.0 Allergy status to penicillin; Z88.2 Allergy status to sulfonamides; Z79.01 Long term (current) use of anticoagulants
CPT/HCPCS: 36415; 84484; 93005; 99284-25

== ENCOUNTER 2020-08-24 08:55 | Emergency (ER) | payer BC ==
--- NOTE | 2020-08-24 09:49 | EDM.PDOC ---
ED HPI GENERAL MEDICAL PROBLEM - General Chief Complaint: General Stated Complaint: ELEVATED HEART RATE, HISTORY OF AFIB Time Seen by Provider: 08/24/20 09:47 Source of Information: Reports: Patient History Limitations: Reports: No Limitations - History of Present Illness INITIAL COMMENTS - FREE TEXT/NARRATIVE: pt arrived with a history of feeling liteheaded. She doesn,t note that this is always positional. Onset: Gradual, Other ( this has elvin going on this week. ) Duration: Hour(s): Location: Reports: Chest Severity: Mild Associated Symptoms: Reports: Other (pt has been lite headed. ) Anterior Chest Pain Score (Numeric/FACES): 2 - Related Data Allergies Allergy/AdvReac Type Severity Reaction Status Date / Time penicillin Allergy Rash Verified 08/24/20 09:17 Sulfa (Sulfonamide Allergy Rash Verified 08/24/20 09:17 Antibiotics) Home Meds: Home Meds Warfarin Sodium [Coumadin] 5 tab PO ASDIRECTED 04/16/20 [History] Warfarin [Coumadin] 7.5 mg PO ASDIRECTED 08/24/20 [History] Past Medical History HEENT History: Reports: Impaired Vision Cardiovascular History: Reports: Afib, Arrhythmia, Heart Murmur, Other (See Below) Other Cardiovascular History: mitral valve prolaps dx on thursday. atrial flutter. 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 GI Surgical History: Reports: Colonoscopy Female Surgical History: Reports: Other (See Below) Other Female Surgeries/Procedures: fibroids removed from uterus Musculoskeletal Surgical History: Reports: Other (See Below) Other Musculoskeletal Surgeries/Procedures:: bunionectomy Social & Family History - Family History Family Medical History: Noncontributory - Tobacco Use Tobacco Use Status *Q: Never Tobacco User Second Hand Smoke Exposure: No - Caffeine Use Caffeine Use: Reports: None - Recreational Drug Use Recreational Drug Use: No ED ROS GENERAL - Review of Systems Review Of Systems: See Below Constitutional: Reports: Other (lightheadd) HEENT: Reports: No Symptoms Respiratory: Reports: Shortness of Breath Endocrine: Reports: No Symptoms GI/Abdominal: Reports: No Symptoms : Reports: No Symptoms Musculoskeletal: Reports: No Symptoms Skin: Reports: No Symptoms ED EXAM, GENERAL - Physical Exam Exam: See Below Free Text/Narrative:: pt arrived with feelinging litheaded. She has had a mitral valve replacement done about 1 year ago. Exam Limited By: No Limitations General Appearance: Alert, No Apparent Distress, Anxious, Other (pupils are equal and reactve. ) Ears: Normal TMs Ear Exam: Right Ear: Foreign Body Nose: Normal Inspection Throat/Mouth: Normal Inspection Head: Atraumatic Neck: Normal Inspection Respiratory/Chest: No Respiratory Distress Cardiovascular: Regular Rate, Rhythm, Other ( frequent PVCS) GI/Abdominal: Soft, Non-Tender (Female) Exam: Deferred Rectal (Female) Exam: Deferred Back Exam: Normal Inspection Extremities: Normal Inspection Neurological: Alert, Oriented, Normal Cognition Psychiatric: Anxious Course - Vital Signs Last Recorded V/S: Last Vital Signs Temp 36.1 C 08/24/20 09:16 Pulse 76 08/24/20 11:41 Resp 13 08/24/20 11:41 BP 136/83 08/24/20 11:41 Pulse Ox 98 08/24/20 11:41 Orthostatic Blood Pressure [ 132/85 Supine] Orthostatic Blood Pressure [ 127/85 Standing] Orthostatic Blood Pressure [ 134/86 Sitting] - Orders/Labs/Meds Labs: Laboratory Tests 08/24/20 08/24/20 08/24/20 Range/Units 10:03 10:03 10:03 WBC 5.9 (4.5-11.0) K/uL RBC 4.67 (3.30-5.50) M/uL Hgb 13.4 (12.0-15.0) g/dL Hct 41.9 (36.0-48.0) % MCV 90 (80-98) fL MCH 29 (27-31) pg MCHC 32 (32-36) % Plt Count 248 (150-400) K/uL Neut % (Auto) 63 (36-66) % Lymph % (Auto) 23 L (24-44) % [place] % (Auto) 10 H (2-6) % Eos % (Auto) 4 (2-4) % Baso % (Auto) 1 (0-1) % PT (9.5-12.0) sec INR (0.80-1.20) Sodium 139 L (140-148) mmol/L Potassium 4.3 (3.6-5.2) mmol/L Chloride 102 (100-108) mmol/L Carbon Dioxide 30 (21-32) mmol/L Anion Gap 11.3 (5.0-14.0) mmol/L BUN 15 (7-18) mg/dL Creatinine 1.1 H (0.6-1.0) mg/dL Est Cr Clr Drug Dosing 53.83 mL/min Estimated GFR (MDRD) 52 L (>60) Glucose 79 (74-106) mg/dL Calcium 9.5 (8.5-10.1) mg/dL Magnesium 1.9 (1.8-2.4) mg/dL Total Bilirubin 0.3 (0.2-1.0) mg/dL AST 24 (15-37) U/L ALT 28 (12-78) U/L Alkaline Phosphatase 55 (46-116) U/L Total Protein 6.8 (6.4-8.2) g/dL Albumin 3.7 (3.4-5.0) g/dL Globulin 3.1 (2.3-3.5) g/dL Albumin/Globulin Ratio 1.2 (1.2-2.2) Urine Color (YELLOW) Urine Appearance (CLEAR) Urine pH (5.0-8.0) Ur Specific [place] (1.008-1.030) Urine Protein (NEGATIVE) mg/dL Urine Glucose (UA) (NEGATIVE) mg/dL Urine Ketones (NEGATIVE) mg/dL Urine Occult Blood (NEGATIVE) Urine Nitrite (NEGATIVE) Urine Bilirubin (NEGATIVE) Urine Urobilinogen (0.2-1.0) EU/dL Ur Leukocyte Esterase (NEGATIVE) Urine RBC (0-5) Urine WBC (0-5) Ur Epithelial Cells Amorphous Sediment Urine Bacteria Urine Mucus 08/24/20 08/24/20 Range/Units 10:26 10:53 WBC (4.5-11.0) K/uL RBC (3.30-5.50) M/uL Hgb (12.0-15.0) g/dL Hct (36.0-48.0) % MCV (80-98) fL MCH (27-31) pg MCHC (32-36) % Plt Count (150-400) K/uL Neut % (Auto) (36-66) % Lymph % (Auto) (24-44) % [place] % (Auto) (2-6) % Eos % (Auto) (2-4) % Baso % (Auto) (0-1) % PT 31.7 H (9.5-12.0) sec INR 2.97 H (0.80-1.20) Sodium (140-148) mmol/L Potassium (3.6-5.2) mmol/L Chloride (100-108) mmol/L Carbon Dioxide (21-32) mmol/L Anion Gap (5.0-14.0) mmol/L BUN (7-18) mg/dL Creatinine (0.6-1.0) mg/dL Est Cr Clr Drug Dosing mL/min Estimated GFR (MDRD) (>60) Glucose (74-106) mg/dL Calcium (8.5-10.1) mg/dL Magnesium (1.8-2.4) mg/dL Total Bilirubin (0.2-1.0) mg/dL AST (15-37) U/L ALT (12-78) U/L Alkaline Phosphatase (46-116) U/L Total Protein (6.4-8.2) g/dL Albumin (3.4-5.0) g/dL Globulin (2.3-3.5) g/dL Albumin/Globulin Ratio (1.2-2.2) Urine Color Yellow (YELLOW) Urine Appearance Clear (CLEAR) Urine pH 7.0 (5.0-8.0) Ur Specific [place] 1.020 (1.008-1.030) Urine Protein Negative (NEGATIVE) mg/dL Urine Glucose (UA) Negative (NEGATIVE) mg/dL Urine Ketones Negative (NEGATIVE) mg/dL Urine Occult Blood Trace-intact H (NEGATIVE) Urine Nitrite Negative (NEGATIVE) Urine Bilirubin Negative (NEGATIVE) Urine Urobilinogen 0.2 (0.2-1.0) EU/dL Ur Leukocyte Esterase Negative (NEGATIVE) Urine RBC 0-5 (0-5) Urine WBC 0-5 (0-5) Ur Epithelial Cells Rare Amorphous Sediment Not seen Urine Bacteria Not seen Urine Mucus Not seen - Re-Assessments/Exams Free Text/Narrative Re-Assessment/Exam: 08/24/20 11:59 pt had normal labs. She is not markedly orthostatic. She is mildly dehydrated. She is having frequent PVCs. Departure - Departure Time of Disposition: 11:53 Disposition: Home, Self-Care 01 Condition: Fair Clinical Impression: Lightheaded, Dehydration, Frequent PVCs - Discharge Information Instructions: Premature Ventricular Contraction, Dehydration, Adult, [id number], Dizziness, [id number] Referrals: Laurel Ham MD [Primary Care Provider] - Forms: ED Department Discharge Care Plan Goals: push fluids, rest over the weekend, avoid decongestants which couild contriiute to the irregularities,appt with regular Dr. in 1 week. If symptoms should persist a echo and holter monitor possibly could be obtained. Sepsis Event Note (ED) - Evaluation Sepsis Screening Result: No Definite Risk
[2020-08-24 11:42] VITALS: BP 136/83; PULSE 76
== END 2020-08-24 12:19 | disposition home or self-care (01) ==
LOC: JP.ED 08:55
DX: E86.0 Dehydration (principal); I48.91 Unspecified atrial fibrillation; I49.3 Ventricular premature depolarization; Z88.0 Allergy status to penicillin; Z88.2 Allergy status to sulfonamides
CPT/HCPCS: 36415; 80053; 81001; 83735; 85025; 85610; 93005; 93010; 99283; 99285-25

== ENCOUNTER 2020-08-27 07:46 | Emergency (ER) | payer BC ==
--- NOTE | 2020-08-27 08:48 | EDM.PDOC ---
ED HPI GENERAL MEDICAL PROBLEM - General Chief Complaint: Gastrointestinal Problem Stated Complaint: blood in stool Time Seen by Provider: 08/27/20 08:43 Source of Information: Reports: Patient History Limitations: Reports: No Limitations - History of Present Illness INITIAL COMMENTS - FREE TEXT/NARRATIVE: 1-year-old female with a history of mitral valve replacement seen ago returns now because she noticed blood on the surface of her stool last evening and recurrently this morning plus a few drops in the bottom of the toilet bowl. No pain attached. No nausea or vomiting. She has had some loose stool for the last couple of days for unknown reasons. She of hemorrhoids noted. No other GI issues noted. She is on Coumadin with an INR of about 3 a few days ago because of her valve issue. Family history noted of GI issues Onset: Sudden Onset Date: 08/26/20 Duration: Intermittent Improves with: Reports: None Worsens with: Reports: None Associated Symptoms: Reports: No Other Symptoms - Related Data Allergies Allergy/AdvReac Type Severity Reaction Status Date / Time penicillin Allergy Rash Verified 08/24/20 09:17 Sulfa (Sulfonamide Allergy Rash Verified 08/24/20 09:17 Antibiotics) Home Meds: Home Meds Warfarin Sodium [Coumadin] 5 tab PO ASDIRECTED 04/16/20 [History] Warfarin [Coumadin] 7.5 mg PO ASDIRECTED 08/24/20 [History] Past Medical History HEENT History: Reports: Impaired Vision Cardiovascular History: Reports: Afib, Arrhythmia, Heart Murmur, Other (See Below) Other Cardiovascular History: mitral valve prolaps dx on 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 atrial flutter. Loop monitor on pt until Jun 21 [employer] History: Reports: - Infectious Disease History Infectious Disease History: Reports: Chicken Pox - Past Surgical History HEENT Surgical History: Reports: LASIK, Oral Surgery Cardiovascular Surgical History: Reports: Other (See Below) Other Cardiovascular Surgeries/Procedures: mechanical valve may 2019, ablasion oct 2019 PVC since March of 2020. GI Surgical History: Reports: Colonoscopy Female Surgical History: Reports: Other (See Below) Other Female Surgeries/Procedures: fibroids removed from uterus Musculoskeletal Surgical History: Reports: Other (See Below) Other Musculoskeletal Surgeries/Procedures:: bunionectomy Social & Family History - Family History Family Medical History: Noncontributory - Tobacco Use Tobacco Use Status *Q: Never Tobacco User - Caffeine Use Caffeine Use: Reports: Tea - Recreational Drug Use Recreational Drug Use: No ED ROS GENERAL - Review of Systems Review Of Systems: See Below Constitutional: Reports: No Symptoms HEENT: Reports: No Symptoms Respiratory: Reports: No Symptoms Cardiovascular: Reports: No Symptoms GI/Abdominal: Reports: Other (And on the surface of the stool and on the toilet bowl) ED EXAM, GI/ABD - Physical Exam Exam: See Below Text/Narrative:: Alert cooperative female in no distress. General exam is unremarkable. Chest exam does show audible click from the mitral valve. Abdomen is soft active bowel sounds Rectal examination does not show any external hemorrhoids but digital exam shows some soft area compatible with internal hemorrhoids. If he is performed accompanied by the nurse and with visualization 1 can see a hemorrhagic area on the internal hemorrhoid not currently bleeding Exam Limited By: No Limitations General Appearance: Alert, WD/WN, No Apparent Distress Head: Atraumatic, Normocephalic Neck: Normal Inspection Respiratory/Chest: No Respiratory Distress, Lungs Clear, Normal Breath Sounds Cardiovascular: Regular Rate, Rhythm, Other (She has an audible click compatible with mitral valve in the chest auscultation). No: No Murmur GI/Abdominal Exam: Normal Bowel Sounds, Soft, Non-Tender, No Organomegaly, No Distention, No Mass Rectal (Female) Exam: Hemorrhoids, Other (On digital rectal I can feel what could be hemorrhoids. Anoscopy is performed and I can see a bleeding internal hemorrhoid area little blood clot attached to the mucosa) Neurological: Alert, Oriented, Normal Cognition Course - Vital Signs Last Recorded V/S: Last Vital Signs Temp 35.3 C L 08/27/20 08:04 Pulse 82 08/27/20 08:04 Resp 16 08/27/20 08:04 BP 138/99 H 08/27/20 08:04 Pulse Ox 99 08/27/20 08:04 - Re-Assessments/Exams Free Text/Narrative Re-Assessment/Exam: 08/27/20 08:49 With concurrence of the patient and assistance with the nurse. I used an anoscope and note at the full insertion of the scope that she has a little hemorrhagic mass hanging on the internal hemorrhoidal mucosa which would be an obvious source of bleeding. Will be a trial of Anusol suppositories followed by reexam with her doctor with whom she has an appointment this coming Thursday and then possible sigmoidoscopy Departure - Departure Time of Disposition: 08:54 Disposition: Home, Self-Care 01 Clinical Impression: Bleeding internal hemorrhoids - Discharge Information Instructions: Hemorrhoids, [id number] Referrals: Laurel Ham MD [Primary Care Provider] - Forms: ED Department Discharge Additional Instructions: anusal suppositories and followed by sigmoidoscopy Sepsis Event Note (ED) - Evaluation Sepsis Screening Result: No Definite Risk - Focused Exam Vital Signs: Vital Signs Temp Pulse Resp BP Pulse Ox 08/27/20 08:04 35.3 C L 82 16 138/99 H 99 08/27/20 07:59 35.3 C L 82 16 138/99 H 99
[2020-08-27 08:52] VITALS: BP 138/99; PULSE 82
== END 2020-08-27 09:03 | disposition home or self-care (01) ==
LOC: JP.ED 07:46
DX: K64.8 Other hemorrhoids (principal); I48.91 Unspecified atrial fibrillation; Z88.0 Allergy status to penicillin; Z88.2 Allergy status to sulfonamides; Z79.01 Long term (current) use of anticoagulants
CPT/HCPCS: 99284